=== PATIENT | female | born 1950 | race Caucasian/White ===

== ENCOUNTER 2019-01-03 12:55 | Day surgery (SDC) | payer MEDICARE, OTHER ==
[2019-01-03] MEDS ORDERED: LIDOCAINE 2% MDV (20MG/ML) 20ML VIAL IV ONE (12:56)
[2019-01-03] MEDS ORDERED: PROPOFOL 10 MG/ML VIAL IV ONE (12:56)
--- NOTE | 2019-01-04 15:00 | Operative Note ---
DATE OF SURGERY: 01/03/2019 PROCEDURE: Screening COLONOSCOPY. PREOPERATIVE DIAGNOSIS: Colon cancer screening, average risk. POSTOPERATIVE DIAGNOSIS: Moderate sigmoid diverticulosis. DESCRIPTION OF PROCEDURE: After informed consent was obtained from the patient, the patient was placed in the left lateral decubitus position in the endoscopy suite, sedated and monitored by the department of anesthesia. Digital rectal exam was unremarkable. A well-lubricated EXO306 colonoscope was inserted into the rectum and advanced to the cecum. The cecum, cecal bulb, ileocecal valve, ascending colon, transverse colon, descending colon, sigmoid colon, and rectum were free of inflammatory changes, mass lesions, or polyps. There were moderate diverticular changes in the sigmoid colon. The rectum was unremarkable in forward and J-turn views. The endoscope was straightened, the rectal ampulla deflated, and the endoscope was removed. RECOMMENDATIONS: The patient should follow a high-fiber diet. I would recommend a repeat exam in 10 years. As always, thank you for allowing me to participate in the healthcare of your patients. CC: DO JONNY Orantes
== END 2019-01-03 15:00 | disposition home or self-care (01) ==
LOC: HOP 12:55
PROVIDERS: ATTEND Internal Medicine Gastroenterology
DX: Z12.11 Encounter for screening for malignant neoplasm of colon (principal); K57.30 Diverticulosis of large intestine without perforation or abscess without bleeding
CPT/HCPCS: 00812; G0121